=== PATIENT | female | born 1975 | race Caucasian/White ===

== ENCOUNTER 2019-07-22 16:04 | Observation (INO) ==
[2019-07-22] MEDS ORDERED: NS 1,000 ML IV ONE ×2 (16:23→22:38)
--- NOTE | 2019-07-22 16:23 | PROVIDER DOCUMENTATION ---
HPI-Female /OB/Breast - General Chief Complaint: Female Stated Complaint: female gu Time Seen by Provider: 07/22/19 16:11 Source: reports: patient Allergies/Adverse Reactions: Patient Allergies Allergy/AdvReac Type Severity Reaction Status Date / Time codeine Allergy ITCHING Verified 05/10/19 16:03 morphine Allergy ITCHING Verified 05/10/19 16:03 diphenhydramine AdvReac Unknown Verified 05/10/19 16:03 [From Benadryl] Home Medications: Home Medication List Medication Instructions Recorded Confirmed Last Taken Type NK [No Home Medications] 07/22/19 07/22/19 Unknown History - History of Present Illness-Female /OB Nature of Presenting Problem: 43 YOF PRESENTS VIA EMS FOR EXHAUSTION, BODY ACHES, GENERAL WEAKNESS, LOW BACK PAIN, PELVIC PAIN. HX OF ANEMIA REQUIRING TRANSFUSION. SHE REPORTS THE SYMPTOMS HAVE BEEN PRESENT X 2 WKS. SHE WAS HAS NOT SEEN PCP. DENIES FEVER, CHILLS, CP, N/V/D. REPORTS SOB WITH EXERTION. Does patient report she is ?: No Location of complaint: reports: suprapubic Radiation: reports: none Quality of Pain: reports: cramping Severity in ED: reports: moderate Onset/Duration: reports: other (2 WKS) Timing: reports: still present Context/Activities at Onset: reports: none Vaginal Symptoms: reports: abnormal bleeding Vaginal Bleeding Amount: Medium/Moderate Urinary Symptoms: reports: low back pain Modifying Factors: improves with: nothing Associated Symptoms: reports: malaise, weakness Similar Symptoms Previously?: Yes Recently seen or treated by another doctor?: No Review of Systems - Adult - REVIEW OF SYSTEMS - ADULT Constitutional: reports: no symptoms reported. denies: see HPI, chills, fever, fatique, night sweats, weight gain, weight loss, other Eyes: reports: no symptoms reported. denies: see HPI, discharge, dry eyes, decreased vision, blurred vision, double vision, eye pain, redness, other Ears, Nose, Mouth & Throat: reports: no symptoms reported. denies: see HPI, ear discharge, ear pain, hearing loss, tinnitus, epistaxis, sinus problem, nose pain, loose teeth, mouth/dental pain, mouth swelling, hoarseness, throat pain, throat swelling, other Cardiovascular: reports: no symptoms reported. denies: see HPI, chest pain, edema, heart murmur, irregular heart rate, orthopnea, palpitations, poor circulation, PND, syncope, other Respiratory: reports: see HPI, shortness of breath (WITH EXERTION). denies: no symptoms reported, chronic cough, cough, dyspnea on exertion, excessive sputum production, hemoptysis, pleurisy, wheezing, other Gastrointestinal: reports: no symptoms reported. denies: see HPI, abdominal pain, hematemesis, constipation, diarrhea, difficulty swallowing, frequent heartburn, nausea, poor appetite, rectal bleeding, vomiting, other Genitourinary: reports: see HPI, flank pain, other (PELVIC PAIN). denies: no symptoms reported, dysuria, discharge, frequency, frequent UTI's, hematuria, hesitency, incontinence, urinary retention, urgency Musculoskeletal: reports: no symptoms reported. denies: see HPI, bone pain, back pain, frequent leg cramps, joint pain, joint swelling, muscle aches, muscle weakness, neck pain, other Integumentary: reports: no symptoms reported. denies: see HPI, hives, hair loss, itching, mole changes, nail changes, rash, skin sores/ulcer, skin thickening, other Neurological: reports: no symptoms reported. denies: see HPI, ataxia, dizziness/vertigo, headache/migraines, loss of balance, numbness, paresthesia, seizure, slurred speech, syncope, tremors, other Psychiatric: reports: no symptoms reported. denies: see HPI, anxiety, anti- depressant use, alcohol/drug dependence, depression, emotional problems, insomnia, panic attacks, suicidal thoughts, other Endocrine: reports: no symptoms reported. denies: see HPI, change in skin pigment, excessive sweating, goiter, cold intolerance, heat intolerance, increased hunger, increased thirst, polyuria, other Hematologic/Lymphatic: reports: low blood count, transfusions. denies: no symptoms reported, see HPI, blood clots, easy bruising, lymphedema, prolonged bleeding, swollen lymph nodes, other Allergic/Immunologic: reports: no symptoms reported. denies: see HPI, allergic reactions, allergic rhinitis, asthma, eczema, food allergy, frequent infections, hay fever, hives, positive PPD, urticaria, other Past History - Adult - PAST MEDICAL HISTORY-ADULT Review of Records: reports: Nursing Assessment Review, Social history reviewed & non-contributory. Major Childhood Illnesses: reports: denies history Cardiovascular: reports: denies history Respiratory: reports: denies history Gastrointestinal: reports: denies history Obstetrical/Gynecological: reports: denies history Genitourinary: reports: denies history Musculoskeletal: reports: denies history Neurological: reports: Seizures/Epilepsy Psychiatric: reports: anxiety, bipolar, depression, psychiatric problems, suicide attempt Endocrine/Immune: reports: anemia Other Conditions: reports: denies history - PRIOR SURGERIES/PROCEDURES Surgical/Procedure History: reports: reviewed, not pertinent - IMMUNIZATION STATUS Childhood Immunizations: See Nurse Assessment Flu Vaccine: See Nurse Assessment - FAMILY HISTORY Family History: reviewed, not pertinent Physical Exam-General - PHYSICAL EXAM-ADULT Initial Vital Signs Reviewed: Yes - CONSTITUTIONAL General Appearance: appears well, alert, no apparent distress - EYES Eyes: PERRL/EOMI, pink conjunctivae - HEAD, EARS, NOSE, MOUTH & THROAT HENMT: normocephalic/atraumatic, moist mucous membranes, normal ENT inspection - NECK Neck: non-tender, full range of motion, supple - RESPIRATORY Respiratory: chest non-tender, lungs clear, normal breath sounds, no pleuratic chest pain, no respiratory distress, no accessory muscle use - CARDIOVASCULAR Cardiovascular: normal peripheral pulses, no edema, no gallop, no JVD, no murmur , tachycardia - GASTROINTESTINAL (ABDOMEN) Abdominal Exam: normal bowel sounds, non tender, soft, no organomegaly, no pulsatile mass - LYMPHATIC Lymphatic: no adenopathy - MUSCULOSKELETAL Back Exam: normal inspection, no CVA tenderness, no vertebral tenderness Extremity: normal range of motion, non-tender, normal gait, normal inspection, no pedal edema, no calf tenderness, normal capillary refill Peripheral Pulses: radial (R): 2+, radial (L): 2+ - SKIN Integumentary: normal color, normal turgor, warm/dry - NEUROLOGIC Neurologic: grossly normal - PSYCHIATRIC Psych/Mental Status: normal mood/affect, oriented x 3 Progress - PLAN OF CARE/RESULTS Progress/Plan/Lab Results: Vital Signs - 8 hr 07/22/19 16:05 07/22/19 16:34 07/22/19 18:09 Temperature 98 F 99.6 F Pulse Rate 116 H 103 H Pulse Rate [Sitting] 103 H Pulse Rate [Standing] 120 H Pulse Rate [Supine] 97 H Respiratory Rate 18 20 Blood Pressure 123/88 118/71 Blood Pressure [Sitting] 107/73 Blood Pressure [Standing] 100/69 Blood Pressure [Supine] 111/66 O2 Sat by Pulse Oximetry 96 99 07/22/19 21:03 Temperature 98.5 F Pulse Rate 96 H Pulse Rate [Sitting] Pulse Rate [Standing] Pulse Rate [Supine] Respiratory Rate 19 Blood Pressure 102/57 Blood Pressure [Sitting] Blood Pressure [Standing] Blood Pressure [Supine] O2 Sat by Pulse Oximetry 97 Bedside Urine ED: Urine Bedside Start: 07/22/19 16:10 Freq: ORDERED Status: Active Protocol: Activity Type Activity Date Activity User E-Sign Co-Sign Detail Recorded Client Recorded Date Recorded By Document 07/22/19 16:13 [id number] 07/22/19 16:13 [id number] 07/22/19 16:13 Point of Care [Bedside Point of Care] -Lot # [id number] - Results Negative -Control Line Visible? Yes Laboratory Results - last 24 hr 07/22/19 07/22/19 07/22/19 16:11 16:40 16:40 WBC 17.37 H RBC 4.45 Hgb 7.5 L Hct 27.3 L MCV 61.3 L MCH 16.9 L MCHC 27.5 L RDW Std Deviation 17.8 H Plt Count 470 H MPV 8.8 Immature Gran % (Auto) 0.3 Neut % (Auto) 78.5 H Lymph % (Auto) 13.0 L Iron % (Auto) 7.2 Eos % (Auto) 0.8 Baso % (Auto) 0.2 Immature Gran # (Auto) 0.05 H Neut # (Auto) 13.64 H Lymph # (Auto) 2.25 Iron # (Auto) 1.25 H Eos # (Auto) 0.14 Baso # (Auto) 0.04 Segmented Neutrophils 78 H Lymphocytes 16 L Monocytes 5 Eosinophils 1 Hypochromia 2+ Large Platelets 1+ Polychromasia 1+ Poikilocytosis 2+ Anisocytosis 2+ Microcytosis 2+ Macrocytosis 2+ Ovalocytes 2+ Stomatocytes 2+ PT 13.2 INR 0.95 PTT (Actin FS) 32.3 Sodium Potassium Chloride Carbon Dioxide Anion Gap BUN Creatinine Estimated GFR/1.73 m2 BUN/Creatinine Ratio Glucose Calculated Osmolality Calcium Magnesium Total Bilirubin AST ALT Alkaline Phosphatase Creatine Kinase Troponin T Total Protein Albumin Globulin Albumin/Globulin Ratio Plasma Lactate Urine Source CLEAN CATCH Urine Color YELLOW Urine Clarity SL. CLOUDY A Urine pH 7.0 Ur Specific Counce 1.000 Urine Protein NEGATIVE Urine Ketones NEGATIVE Urine Blood NEGATIVE Urine Nitrite NEGATIVE Urine Bilirubin NEGATIVE Urine Urobilinogen NORMAL Urine Microscopic RBC Not Reportable Urine WBC 2+ A Urine Microscopic WBC 20-40 A Ur Epithelial Cells >10 A Urine Crystals NONE SEEN Urine Bacteria 1+ Urine Casts NONE SEEN Urine Yeast NONE SEEN Urine Glucose NEGATIVE Blood Type Antibody Screen 07/22/19 07/22/19 07/22/19 16:40 18:15 18:15 WBC RBC Hgb Hct MCV MCH MCHC RDW Std Deviation Plt Count MPV Immature Gran % (Auto) Neut % (Auto) Lymph % (Auto) Iron % (Auto) Eos % (Auto) Baso % (Auto) Immature Gran # (Auto) Neut # (Auto) Lymph # (Auto) Iron # (Auto) Eos # (Auto) Baso # (Auto) Segmented Neutrophils Lymphocytes Monocytes Eosinophils Hypochromia Large Platelets Polychromasia Poikilocytosis Anisocytosis Microcytosis Macrocytosis Ovalocytes Stomatocytes PT INR PTT (Actin FS) Sodium 134 L Potassium 4.4 Chloride 99 Carbon Dioxide 23 L Anion Gap 12 BUN 11 Creatinine 0.6 Estimated GFR/1.73 m2 > 60 BUN/Creatinine Ratio 18 Glucose 108 H Calculated Osmolality 268 Calcium 10.4 H Magnesium 1.7 Total Bilirubin 0.30 AST 18 ALT 14 Alkaline Phosphatase 72 Creatine Kinase 30 Troponin T Total Protein 8.6 H Albumin 5.1 H Globulin 4.0 Albumin/Globulin Ratio 1.0 Plasma Lactate 1.3 Urine Source Urine Color Urine Clarity Urine pH Ur Specific Counce Urine Protein Urine Ketones Urine Blood Urine Nitrite Urine Bilirubin Urine Urobilinogen Urine Microscopic RBC Urine WBC Urine Microscopic WBC Ur Epithelial Cells Urine Crystals Urine Bacteria Urine Casts Urine Yeast Urine Glucose Blood Type Antibody Screen 07/22/19 07/22/19 18:15 18:15 WBC RBC Hgb Hct MCV MCH MCHC RDW Std Deviation Plt Count MPV Immature Gran % (Auto) Neut % (Auto) Lymph % (Auto) Iron % (Auto) Eos % (Auto) Baso % (Auto) Immature Gran # (Auto) Neut # (Auto) Lymph # (Auto) Iron # (Auto) Eos # (Auto) Baso # (Auto) Segmented Neutrophils Lymphocytes Monocytes Eosinophils Hypochromia Large Platelets Polychromasia Poikilocytosis Anisocytosis Microcytosis Macrocytosis Ovalocytes Stomatocytes PT INR PTT (Actin FS) Sodium Potassium Chloride Carbon Dioxide Anion Gap BUN Creatinine Estimated GFR/1.73 m2 BUN/Creatinine Ratio Glucose Calculated Osmolality Calcium Magnesium Total Bilirubin AST ALT Alkaline Phosphatase Creatine Kinase Troponin T < 0.010 Total Protein Albumin Globulin Albumin/Globulin Ratio Plasma Lactate Urine Source Urine Color Urine Clarity Urine pH Ur Specific Counce Urine Protein Urine Ketones Urine Blood Urine Nitrite Urine Bilirubin Urine Urobilinogen Urine Microscopic RBC Urine WBC Urine Microscopic WBC Ur Epithelial Cells Urine Crystals Urine Bacteria Urine Casts Urine Yeast Urine Glucose Blood Type A POSITIVE Antibody Screen NEGATIVE Orders Category Date Time Status Cardiac Monitoring DIRECTED Care 07/22/19 17:47 Active ED: Urine Bedside ORDERED Care 07/22/19 16:10 Active Notify Physician As Ordered Care 07/22/19 17:47 Active Orthostatic Vital Signs NOW Care 07/22/19 16:18 Active Saline Loc NOW Care 07/22/19 16:[address] ABD/PELVIS W/IV CONT ONLY [CT] Stat Exams 07/22/19 16:53 Completed US PELVIC NON-OB COMPLETE [US] Stat Exams 07/22/19 18:07 Completed cxr [CHEST-2 VIEWS] [RAD] Stat Exams 07/22/19 16:19 Completed BLOOD CULTURE [BLDCUL] Stat Lab 07/22/19 17:56 Received CBC WITH DIFF [HEME] Stat Lab 07/22/19 16:40 Completed CK PROFILE [SP CHEM] Stat Lab 07/22/19 18:15 Completed COMPREHENSIVE METABOLIC PANEL [CHEM] Stat Lab 07/22/19 16:40 Completed LACTATE, PLASMA [CHEM] Lab 07/22/19 18:15 Completed LACTATE, PLASMA [CHEM] Lab 07/22/19 21:00 Uncollected LACTATE, PLASMA [CHEM] Lab 07/23/19 00:00 Uncollected MAGNESIUM [CHEM] Stat Lab 07/22/19 18:15 Completed PROTIME WITH INR [COAG] Stat Lab 07/22/19 16:40 Completed PTT [COAG] Stat Lab 07/22/19 16:40 Completed TROPONIN T Stat Lab 07/22/19 18:15 Completed TYPE & SCREEN [BBK] Stat Lab 07/22/19 18:[address] W/POSS RFLX CULT [URINALYSIS] Stat Lab 07/22/19 16:11 Completed URINE CULTURE [RM] Routine Lab 07/22/19 16:38 Received 0.9% Sodium Chloride Inj [Ns] 1,000 ml Med 07/22/19 16:23 Discontinued IV 999 mls/hr 0.9% Sodium Chloride Inj [Ns] 500 ml Med 07/22/19 19:16 Discontinued IV 999 mls/hr Ampicillin 2 gm Med 07/22/19 18:08 Discontinued 0.9% Sodium Chloride Inj [Ns] 100 ml IV NOW Clindamycin 600 mg/D5w Med 07/22/19 18:08 Discontinued 600 mg in 50 ml IV NOW Gentamicin 90 mg Med 07/22/19 18:09 Discontinued 0.9% Sodium Chloride Inj [Ns] 50 ml IV NOW Gentamicin 90 mg Med 07/22/19 21:00 Active 0.9% Sodium Chloride Inj [Ns] 50 ml IV NOW 1810: discussed with fiberglass technician Dr Fernandez who request pelvic US then call back but b egin gentamicin, clindamycin and ampicillin NOW in ER. Spoke with terra regarding admission since this patient was discussed with Dr. Hernadez prior to scan coming back. She is aware and will follow. 2115: READ US RESULTS OFF TO DR FERNANDEZ, WHO REPORTS NO SIGNS OF TOA, TO TREAT PATIENT WITH DOXYCYLINE 100MG PO BID, FLAGYL 500 BID X 14 DAYS. THE PATIENT WILL BE ADMITTED HERE FOR ANEMIA. DR HERNADEZ UPDATED. Result Diagrams: 07/22/19 16:40 07/22/19 16:40 - XRAY 1 XRAY Study: Chest Impression: See EMR Report (EXAM: CHEST-2 VIEWS 07/22/2019 HISTORY: COUGH TECHNIQUE: PA and lateral chest COMMENT: There is a calcified granuloma in the left lower lobe. There is no evidence of acute cardiac or pulmonary disease. There is apparent COPD. IMPRESSION: No evidence of acute disease. Electronically signed by Jeremiah Lozano 07/22/2019 5:57 PM [id number]/[id number] Interpreting Physician: Jeremiah Lozano MD Dictated Date/Time: 07/22/191756 cc: Paula Curiel; None,PCP) - CT/MRI 1 CT Study: Abdomen, Pelvis Impression: See EMR Report (EXAM: CT ABD/PELVIS W/IV CONT ONLY 07/22/2019 H ISTORY: ABDOMINAL PAIN, ELEVATED WBC TECHNIQUE: This exam was performed using automated exposure control, adjustment of mA or kV according to patient size, and/or use of iterative reconstruction technique. COMMENT: There is no evidence of acute disease in the visualized portion of the chest. There are multiple cholesterol stones in the gallbladder. There are some cysts in the left hepatic lobe. The kidneys are without evidence of hydronephrosis or mass. The spleen is not enlarged. The adrenal glands are not enlarged and the pancreas is unremarkable. There is some stool in the colon particularly the right colon. The small bowel is not distended and the aorta is not distended. There is a n onspecific left periaortic node below the renal pedicle measuring a centimeter in diameter. Pelvis: The appendix is normal in appearance. There are bilateral serpiginous fluid collections in the adnexal regions, and there are multiple ovarian cystic appearing structures including a left ovarian cyst measuring 2.1 cm and a right cyst measuring 2.3 cm. There is free fluid in the pelvis. The urinary bladder is not distended. The regional skeleton appears to be intact. IMPRESSION: Bilateral hydrosalpinges and possible tubo-ovarian abscesses. Cholelithiasis. Electronically signed by Jeremiah Lozano 07/22/2019 5:56 PM 07/22/[id number] Interpreting Physician: Jeremiah Lozano MD Dictated Date/Time: 07/22/191750 cc: Paula Curiel; None,PCP) - ULTRASOUND (By Radiology) 1 US Study: Pelvic Impression: See EMR Report (EXAM: US PELVIC NON-OB COMPLETE 07/22/2019 HISTORY: tubo-ovarian abscess TECHNIQUE: Pelvic ultrasound transabdominal and endovaginal scan COMMENT: There is a small amount of free fluid. The endometrial stripe measures 6 mm. There is an nabothian cyst in the cervix. T here are follicular cysts present in the left ovary the largest measuring 2.3 cm. There is a 2 cm cyst in the right ovary. The uterus measures 9.2 x 5.4 x 4.3 cm. IMPRESSION: Bilateral ovarian cysts. Free pelvic fluid. The hydrosalpinges which were demonstrated on CT are not visible on this study. Electronically signed by Jeremiah Lozano 07/22/2019 8:24 PM 07/22/192023 Interpreting Physician: Jeremiah Lozano MD Dictated Date/Time: 07/22/192020 cc: Paula Curiel; None,PCP) - CONSULTS/PCP/HOSPITALIST Notification #1 *Consult/PCP/Hospitalist*: DR HERNADEZ Time Discussed: 21:19 Consult Disposition: Admit Departure - Departure Date of Disposition Decision: 07/22/19 Time of Disposition Decision: 21:17 DIAGNOSIS: Anemia, PID (acute pelvic inflammatory disease), Dysfunctional uterine bleeding Disposition: ADMITTED INPATIENT 09 Certified Medical Emergency: Emergent Condition: Stable Referrals and Follow-Ups: None,PCP [Primary Care Provider] - - Critical Care Note This patient required my direct & personal management of CC.: No Attestation - Physician/ EVER Attestation Patient care was provided by Advanced Practice Provider:: Yes Advanced Practice Provider:: Paula Curiel Advanced Practice Provider documentation review:: The Mid-level provider documentation, treatment plan and medical decision making was reviewed by the physician who agrees with all treatment and medical decision making by the P. The physician spent face to face time with patient:: No Advanced Practice Provider documentation review:: Supervising physician onsite and consulted in the evaluation and care of this patient. The physician did not have a face to face encounter with the patient.
[2019-07-22 16:25] LABS: BILIRUBIN URINE NEGATIVE (NEGATIVE); BLOOD URINE NEGATIVE (NEGATIVE); CLARITY SL. CLOUDY (CLEAR); COLOR YELLOW; GLUCOSE URINE NEGATIVE (NEGATIVE); KETONE URINE NEGATIVE (NEGATIVE); LEUKOCYTES URINE 2+ (NEGATIVE); NITRITE URINE NEGATIVE (NEGATIVE); PROTEIN URINE NEGATIVE (NEGATIVE); UROBILINOGEN URINE NORMAL
[2019-07-22 16:37] LABS: URINE BACTERIA 1+ /HFP; URINE EPITHELIAL CELLS >10 /HPF (<10); URINE WBC 20-40 /HPF (<10); URINE YEAST NONE SEEN /HPF
[2019-07-22 16:38] LABS: URINE CAST NONE SEEN /LPF; URINE CRYSTAL NONE SEEN /HPF; URINE SOURCE CLEAN CATCH
[2019-07-22 16:51] LABS: BASO# 0.04 X1000 (0.0-0.2); BASO% 0.2 % (0.0-0.8); EOS# 0.14 X1000 (0.0-0.7); EOS% 0.8 % (0.0-10.0); HEMATOCRIT 27.3 % (37.0-47.0); HEMOGLOBIN 7.5 g/dL (12.0-16.0); IMM GRAN# 0.05 X1000 (0.0-0.04); IMM GRAN% 0.3 % (0.0-0.5); LYMPH# 2.25 X1000 (1.2-3.4); MCH 16.9 PG (27-31); MCHC 27.5 g/dL (33-37); MCV 61.3 FL (81-99); MONO# 1.25 X1000 (0.11-0.59); MONO% 7.2 % (1.7-9.3); MPV 8.8 FL (7.4-10.4); NEUT# 13.64 X1000 (1.4-6.5); NEUT% 78.5 % (42.2-75.2); PLT 470 X1000 (130-400); RBC 4.45 XMIL (4.2-5.4); RDW 17.8 % (11.5-14.5); WBC 17.37 X1000 (4.8-10.8)
[2019-07-22 17:00] LABS: INR 0.95; PROTIME 13.2 Seconds (11.0-16.0)
[2019-07-22 17:01] LABS: PTT 32.3 Seconds (22.3-41.8)
[2019-07-22 17:03] LABS: AGAP 12; ALBUMIN 5.1 g/dL (3.5-5.0); ALKALINE PHOSPHATASE 72 U/L (32-104); BUN 11 mg/dL (8-22); CALCIUM 10.4 mg/dL (8.8-10.2); CHLORIDE 99 mmol/L (98-107); COSMO 268; CREATININE 0.6 mg/dL (0.5-0.9); ESTIMATED GFR > 60; GLUCOSE 108 mg/dL (70-104); GOT 18 U/L (10-30); GPT 14 U/L (10-36); POTASSIUM 4.4 mmol/L (3.5-5.1); SODIUM 134 mmol/L (136-145); TCO2 23 mmol/L (25-35); TOTAL PROTEIN 8.6 g/dL (6.3-8.3)
[2019-07-22 17:13] LABS: EOS 1 % (1-10); LYMPHS 16 % (21-51); MONO 5 % (1-9); SEGS 78 % (42-75)
[2019-07-22 17:14] LABS: ANISOCYTOSIS 2+; HYPOCHROM 2+; POLYCHROM 1+
[2019-07-22 17:15] LABS: LARGE PLATELETS 1+; MICROCYTOSIS 2+; OVALOCYTES 2+; POIKILOCYTOSIS 2+; STOMATOCYTES 2+
--- NOTE | 2019-07-22 17:58 | Diag Imaging Result Doc PS360 ---
EXAM: CT ABD/PELVIS W/IV CONT ONLY 07/22/2019 HISTORY: ABDOMINAL PAIN, ELEVATED WBC TECHNIQUE: This exam was performed using automated exposure control, adjustment of mA or kV according to patient size, and/or use of iterative reconstruction technique. COMMENT: There is no evidence of acute disease in the visualized portion of the chest. There are multiple cholesterol stones in the gallbladder. There are some cysts in the left hepatic lobe. The kidneys are without evidence of hydronephrosis or mass. The spleen is not enlarged. The adrenal glands are not enlarged and the pancreas is unremarkable. There is some stool in the colon particularly the right colon. The small bowel is not distended and the aorta is not distended. There is a nonspecific left periaortic node below the renal pedicle measuring a centimeter in diameter. Pelvis: The appendix is normal in appearance. There are bilateral serpiginous fluid collections in the adnexal regions, and there are multiple ovarian cystic appearing structures including a left ovarian cyst measuring 2.1 cm and a right cyst measuring 2.3 cm. There is free fluid in the pelvis. The urinary bladder is not distended. The regional skeleton appears to be intact. IMPRESSION: Bilateral hydrosalpinges and possible tubo-ovarian abscesses. Cholelithiasis. Electronically signed by Jeremiah Lozano 07/22/2019 5:56 PM
--- NOTE | 2019-07-22 18:00 | Diag Imaging Result Doc PS360 ---
EXAM: CHEST-2 VIEWS 07/22/2019 HISTORY: COUGH TECHNIQUE: PA and lateral chest COMMENT: There is a calcified granuloma in the left lower lobe. There is no evidence of acute cardiac or pulmonary disease. There is apparent COPD. IMPRESSION: No evidence of acute disease. Electronically signed by Jeremiah Lozano 07/22/2019 5:57 PM
[2019-07-22] MEDS ORDERED: CLINDAMYCIN 600 MG/D5W 600 MG/50 ML IVPB IV ONE (18:08)
[2019-07-22] MEDS ORDERED: AMPICILLIN 2 GM in NS 100 ML IV ONE (18:08)
[2019-07-22] MEDS ORDERED: GENTAMICIN IV ONE (18:09)
[2019-07-22] MEDS ORDERED: NS IV ONE (18:09)
[2019-07-22 19:16] LABS: MAGNESIUM 1.7 mg/dL (1.5-2.7)
[2019-07-22] MEDS ORDERED: NS 500 ML IV ONE (19:16)
--- NOTE | 2019-07-22 20:26 | Diag Imaging Result Doc PS360 ---
EXAM: US PELVIC NON-OB COMPLETE 07/22/2019 HISTORY: tubo-ovarian abscess TECHNIQUE: Pelvic ultrasound transabdominal and endovaginal scan COMMENT: There is a small amount of free fluid. The endometrial stripe measures 6 mm. There is an nabothian cyst in the cervix. There are follicular cysts present in the left ovary the largest measuring 2.3 cm. There is a 2 cm cyst in the right ovary. The uterus measures 9.2 x 5.4 x 4.3 cm. IMPRESSION: Bilateral ovarian cysts. Free pelvic fluid. The hydrosalpinges which were demonstrated on CT are not visible on this study. Electronically signed by Jeremiah Lozano 07/22/2019 8:24 PM
[2019-07-22] MEDS: NS IV ONE ×2 (21:00→21:30)
[2019-07-22] MEDS: GENTAMICIN IV ONE ×2 (21:00→21:30)
[2019-07-22] MEDS ORDERED: ROCEPHIN 1 GM in NS 50 ML IV SCH (22:38)
[2019-07-23 06:23] VITALS: BP 103/56
[2019-07-23] MEDS ORDERED: FLAGYL PO SCH (09:00)
[2019-07-23] MEDS ORDERED: DOXYCYCLINE PO SCH (09:00)
[2019-07-23 09:08] LABS: BASO# 0.04 X1000 (0.0-0.2); BASO% 0.2 % (0.0-0.8); EOS# 0.16 X1000 (0.0-0.7); HEMOGLOBIN 7.8 g/dL (12.0-16.0); IMM GRAN# 0.06 X1000 (0.0-0.04); IMM GRAN% 0.4 % (0.0-0.5); LYMPH# 1.89 X1000 (1.2-3.4); LYMPH% 11.3 % (20.5-51.1); MCH 17.9 PG (27-31); MCHC 27.9 g/dL (33-37); MCV 64.4 FL (81-99); MONO% 7.7 % (1.7-9.3); MPV 8.7 FL (7.4-10.4); NEUT# 13.34 X1000 (1.4-6.5); NEUT% 79.4 % (42.2-75.2); PLT 403 X1000 (130-400); RBC 4.35 XMIL (4.2-5.4); RDW 19.9 % (11.5-14.5); WBC 16.79 X1000 (4.8-10.8)
[2019-07-23 09:33] LABS: AGAP 13; ALBUMIN 4.3 g/dL (3.5-5.0); ALKALINE PHOSPHATASE 61 U/L (32-104); BUN 7 mg/dL (8-22); CALCIUM 9.3 mg/dL (8.8-10.2); CHLORIDE 103 mmol/L (98-107); COSMO 275; CREATININE 0.5 mg/dL (0.5-0.9); ESTIMATED GFR > 60; GLUCOSE 114 mg/dL (70-104); GOT 18 U/L (10-30); GPT 12 U/L (10-36); MAGNESIUM 1.8 mg/dL (1.5-2.7); SODIUM 138 mmol/L (136-145); TCO2 22 mmol/L (25-35)
[2019-07-23 09:56] LABS: ANISOCYTOSIS 2+; EOS 1 % (1-10); LYMPHS 7 % (21-51); MONO 4 % (1-9); SEGS 88 % (42-75)
--- NOTE | 2019-07-23 19:41 | HISTORY AND PHYSICAL ---
CHIEF COMPLAINT: Generalized body aches, exhaustion, generalized weakness with low back pain. HISTORY OF PRESENT ILLNESS: This is a 43-year-old female with a prior history of depression, bipolar disorder, iron deficiency anemia, and substance abuse. She presents to the emergency room complaining of just generalized weakness, body aches, low back pain, pelvic pain. She states these symptoms have been present for about 2 weeks. She has not been evaluated prior to this. She denied any fevers or chills, any nausea, vomiting, diarrhea. She does have a history of irregular menstrual periods with her last menstrual period being within the last 10 days. PAST MEDICAL HISTORY: Depression, bipolar disorder, anxiety, iron deficiency anemia, PTSD, migraines. PAST SURGICAL HISTORY: Denies. SOCIAL HISTORY: She lives with family members. She smokes about a pack a day. She has occasional alcohol use. She denies any illicit drug use. ALLERGIES: Codeine and morphine which cause itching. Benadryl with unknown reaction. HOME MEDICATIONS: [place] 7.5. FAMILY HISTORY: Positive for hypertension. Family history of depression. Grandmother had schizophrenia. REVIEW OF SYSTEMS: Discussed with patient with pertinent positives as stated in the HPI. She denied any syncope or dizziness, any chest pain or palpitations, any fever, chills, nausea, vomiting, diarrhea, shortness of breath, cough, any black or bloody vomitus or stools, any hematuria, dysuria, frequency, urgency. PHYSICAL EXAMINATION: GENERAL: This is a 43-year-old female who is sitting in the bed in no distress. VITAL SIGNS: Blood pressure 102/63 with a heart rate of 96, respirations are 18, temperature is 98.5 degrees with room air saturations 97%. EYES: Pupils are equal, round, react to light. EOMs are intact. Sclerae are anicteric. HEENT: Head is normocephalic, atraumatic. Mucous membranes are moist. NECK: Supple with trachea midline. CARDIOVASCULAR: Regular rate and rhythm. S1 and S2 are appreciated. She has no lower extremity edema. Peripheral pulses are palpable x4 extremities. Calves are nontender. PULMONARY: Breath sounds are clear with no increased work of breathing noted. Chest rises and falls symmetric with respiration. GASTROINTESTINAL: Abdomen is soft, nontender, nondistended with bowel sounds in all 4 quadrants. GENITOURINARY: No CVA or suprapubic tenderness. NEUROLOGIC: She is alert and oriented x3. SKIN: Warm and dry. LABS: WBC is 17 with hemoglobin 7.5, hematocrit 27.3, and platelets of 470,000. Sodium 134, potassium 4.4, BUN 11, creatinine 0.6 with a glucose of 108. Urinalysis reveals 20 to 40 microscopic white blood cells with greater than 10 epithelial cells which is consistent with contamination. Urine culture and blood cultures are pending. CT of the abdomen and pelvis reveals bilateral hydrosalpinges and possible tubo- ovarian abscesses. Pelvic ultrasound revealed bilateral ovarian cysts. Free pelvic fluid. The hydrosalpinges which were demonstrated on CT are not visible on this study. Chest x-ray revealed no evidence of acute disease. ASSESSMENT AND PLAN: 1. Anemia. 2. Dysfunctional uterine bleeding. 3. Acute pelvic inflammatory disease. 4. Leukocytosis. PLAN: Dr. Miranda ORTHOPEDIC DESIGNER, reviewed the patient's CT scan ordered and she ordered gentamicin, clindamycin, and ampicillin. While the patient was in the ER, she ordered an pelvic ultrasound to be completed, after reviewing this, she felt the patient had acute pelvic inflammatory disease. Recommended we treat the patient with doxycycline 100 mg b.i.d. and Flagyl 500 b.i.d. x14 days. the patient was admitted to the medical-surgical floor. Antibiotics were given as stated along with IV hydration. We will repeat a CBC, BMP in the morning. Transfuse 1 unit of packed cells as started in the emergency room. Plan was discussed with Dr. Tejada. Further treatments pending hospital course. Dictated by RAYA Thomas for Jluis Tejada MD cc: RAYA Thomas MD [facility]
--- NOTE | 2019-07-23 19:41 | HISTORY AND PHYSICAL ---
ADDENDUM: Patient seen and examined by myself. Full note dictated and discussed with nurse practitioner. Patient presented to the hospital with generalized weakness, generalized body aches. She states she has a known history of anemia and thought that her blood count was going to be low. She had a CT done which was abnormal. Ultrasound thankfully demonstrated ovarian cyst only. We are going to admit her to the hospital, antibiotics, IV fluids and will follow. cc: Jluis Tejada MD
--- NOTE | 2019-07-24 15:41 | DISCHARGE SUMMARY ---
ADMISSION DATE: 07/22/2019 DISCHARGE DATE: 07/23/2019 DIAGNOSES: 1. Symptomatic iron deficiency anemia. 2. Acute pelvic inflammatory disease. 3. Dysfunctional uterine bleeding. DIAGNOSTICS: 1. Chest x-ray revealed no evidence of acute disease. 2. CT of the abdomen and pelvis revealed bilateral hydrosalpinges and possible tubo-ovarian abscesses. 3. Pelvic ultrasound revealed bilateral ovarian cyst with free pelvic fluid. The hydrosalpinges which were demonstrated on CT are not visible on this study. 4. Urine culture revealed no growth. 5. Blood cultures are pending. HOSPITAL COURSE: Ms Hough presented to the emergency room complaining of 2 weeks of generalized body aches, generalized weakness, low back pain, pelvic pain, and anemia requiring transfusions in the past. She is not followed up with any physicians prior to this ER visit. She was found to have a hemoglobin of 7.5, hematocrit of 27.3, for which she was transfused 1 unit of packed cells with hemoglobin and hematocrit of 7.8 and 28 today. She was found to have a white count of 17.3. CT scan and pelvic ultrasound were performed with results stated above. This was reviewed with Dr. Miranda. Per the emergency room provider it was felt that this was PID. Antibiotics as stated above per Dr. Miranda recommendations. Today, the patient feels better and thankfully she is able to discharge. DISCHARGE VITAL SIGNS: Blood pressure is 103/56, heart rate of 86, respirations 19, temperature is 98.4 degrees oral with room air saturations 96%. DISCHARGE PHYSICAL EXAMINATION: Cardiovascular: Regular rate and rhythm. S1, S2 appreciated. Pulmonary: Breath sounds are clear with no increased work of breathing noted. Gastrointestinal: Abdomen is soft, nontender, nondistended. Bowel sounds in all 4 quadrants. Neurologic: Neurologic she is alert oriented x3. Skin: Warm and dry. DISCHARGE MEDICATIONS: 1. Flagyl 500 mg p.o. t.i.d. x14 days. 2. Doxycycline 100 mg p.o. b.i.d. FOLLOWUP: 1. Dr. Miranda, Ob-El Teacher. She is to call to schedule an appointment to be seen in 3 to 4 weeks, sooner if needed. 2. She has been instructed to return to the ER for any syncope, dizziness, chest pain, palpitations, temperature greater than 101, any nausea, vomiting, diarrhea, constipation, black or bloody vomitus or stools, hematuria, dysuria, frequency, urgency or for any questions or concerns that she may have. DISPOSITION: She is being discharged home in stable condition with family members. TIME SPENT: This is a greater than 30 minute discharge. Dictated by RAYA Thomas for Jluis Tejada MD cc: RAYA Thomas MD
--- NOTE | 2019-07-24 15:44 | DISCHARGE SUMMARY ---
ADMISSION DATE: 07/22/2019 DISCHARGE DATE: 07/23/2019 DISCHARGE DIAGNOSES: 1. Bilateral ovarian cyst. 2. Nausea resolved. 3. Abdominal pain, improving. 4. Anemia stable. 5. History of bipolar. 6. History of seizures. CONSULTATIONS: Seafood Team Member. PROCEDURES: None. BRIEF HOSPITAL COURSE: The patient was admitted to the hospital secondary to her symptoms. She also had a leukocytosis. CT demonstrated abnormal ovaries. Thankfully ultrasound demonstrated ovarian cysts. SIZE WORKER was consulted and felt as though she could transition to oral antibiotics. We continued IV antibiotics overnight. We will recheck her white count in the morning. It had decreased slightly down from 17 to 16. However, more importantly Ms Hough noted that she was feeling tremendously better. All of her symptoms had resolved. She was feeling back to her normal and was asking to go home. DISPOSITION: Patient will be discharged home on doxycycline and Flagyl for the next 7 days. She will follow up outpatient with Seafood Team Member of choice. No other changes made on her chronic diet or medications. TIME SPENT: Greater than 30 minutes was spent in total care. cc: Jluis Tejada MD
== END 2019-07-23 17:13 | disposition home or self-care (01) ==
LOC: P.ED 16:04 → P.MEDSURG 16:04
PROVIDERS: ATTEND Family Medicine